=== PATIENT | female | born 1960 | race Caucasian/White ===

== ENCOUNTER → 2016-03-17 | Outpatient (CLI) | payer OTHER | LOC: MMPC 11:11 | DX: N18.3 Chronic kidney disease, stage 3 (moderate) (principal); I10 Essential (primary) hypertension; E78.5 Hyperlipidemia, unspecified; G35 Multiple sclerosis; E55.9 Vitamin D deficiency, unspecified; J44.9 Chronic obstructive pulmonary disease, unspecified; E66.9 Obesity, unspecified | CPT/HCPCS: 99213; G0463 ==

== ENCOUNTER → 2016-04-07 | Outpatient (CLI) | payer OTHER ==
[2016-04-07 11:28] LABS: BUN/CREATININE RATIO 17.85 (6-20); CALCIUM 9.5 mg/dL (8.7-10.7); CREATININE 1.4 mg/dL (0.50-1.20); POTASSIUM 4.3 meq/L (3.8-5.2)
--- NOTE | 2016-04-07 13:10 | DI ---
CT ANGIOGRAM OF THE CHEST, 04/07/2016 11:02 AM : Clinical History: Left pleuritic chest pain. Previous Exam: None at this facility. Scans are performed from the base of the neck to the lower lung bases following IV administration of 60 mL of Isovue 300, followed by a 50 mL bolus of normal saline. Proprietary automated bolus tracking software was used to verify the timing of the injection. The base of the neck and thoracic inlet are normal. A Groshong catheter is located in the left anteri or chest. There are no abnormal axillary, supraclavicular, mediastinal, or hilar nodes. The heart is normal and there are only small calcifications in the midportion of the LAD. There is a large pulmona ry embolus located in the distal portion of the left main pulmonary artery with occlusion of branches to the left upper lobe and lingular segment and branches to the anterobasal and laterobasal segments . Small clots are present in branches to the lateral segment of the right middle lobe. There are mult iple pleural-based densities in the anterior segment of the left upper lobe, the posterobasal segment of the left lower lobe, and the medial segment of the right middle lobe all consistent with small pu lmonary infarcts. There is a very small pleural effusion in the left posterior sulcus. There is no ri ght adrenal gland. The left adrenal gland has a normal configuration. Immediately anterior to the lef t adrenal gland and medial margin of the spleen is a 4 cm diameter low-density spherical lesion that contains gas within it as well as some calcific density in the posterior aspect. This lesion is darell guous with the posterior wall of the fundus of the stomach and may represent a diverticulum arising f rom the fundus. A true left adrenal mass is felt to be unlikely because of the presence of gas. [facility] evaluation of this lesion can either be performed with a followup air contrast upper GI series or with a noncontrast CT scan of the abdomen after the patient has ingested some gas granules. READIN. There are large clots in the left main pulmonary artery that extends into the branches to the lef t upper lobe and lingular segment and to the left lower lobe branches. Small pleural-based densities are present in the left upper lobe, left lower lobe, and right middle lobe consistent with small pulm onary infarcts. There is no pulmonary arterial hypertension. 2. There is a 4 cm low-density spherical lesion containing gas and calcium density material within i t located immediately posterior and contiguous with the body of the stomach. This may represent a div erticulum arising from the posterior margin of the fundus and body of the stomach. If further evaluat ion of this lesion is required, a double contrast upper GI series can be performed. 3. This patient apparently has only a single left adrenal gland.
[2016-04-08 13:40] LABS: SEND OUT PROTIME 11.9 sec
[2016-04-08 13:41] LABS: DRVVT SCREEN RATIO 1.0 ratio; SEND OUT APTT 27 sec; SEND OUT INR 1.1
[2016-04-08 13:42] LABS: FIBRIONGEN EQUIVALENT UNITS 1.47 mcg/mL FEU
[2016-04-08 13:43] LABS: SOLUBLE FIBRIN MONOMER <8 mcg/mL
[2016-04-11 14:02] LABS: APCRV RATIO 1.9
[2016-04-13 08:45] LABS: FACTOR V MUTATION ANALYSIS Heterozygous (Negative)
[2016-04-13 11:12] LABS: FACTOR V INTERPRETATION SEE COMMENTS (()); FACTOR V REVIEWED BY SEE COMMENTS (())
== END ==
LOC: CT 10:57
DX: R07.81 Pleurodynia (principal); I12.9 Hypertensive chronic kidney disease with stage 1 through stage 4 chronic kidney disease, or unspecified chronic kidney disease; N18.3 Chronic kidney disease, stage 3 (moderate); I26.99 Other pulmonary embolism without acute cor pulmonale; F17.210 Nicotine dependence, cigarettes, uncomplicated
CPT/HCPCS: 36415; 71275; 80048; 81240; 85300; 85303; 85306; 85307; 85366; 85379; 85384; 85390; 85610; 85613; 85670; 85730

== ENCOUNTER → 2016-04-27 | Outpatient (CLI) | payer OTHER ==
[2016-04-27 11:39] LABS: BUN/CREATININE RATIO 17.69 (6-20); CALCIUM 9.4 mg/dL (8.7-10.7); CHOL/HDL RATIO 4.69 RATIO (0-4.0); LDL CHOLESTEROL,CALCULATED 99.6 mg/dL
== END ==
LOC: MOB LAB 10:35
DX: N18.3 Chronic kidney disease, stage 3 (moderate) (principal); E55.9 Vitamin D deficiency, unspecified; E78.5 Hyperlipidemia, unspecified; F17.210 Nicotine dependence, cigarettes, uncomplicated
CPT/HCPCS: 80048; 82247; 82306; 82465; 82550; 82977; 83718; 84075; 84450; 84460; 84478

== ENCOUNTER → 2016-05-31 | Outpatient (CLI) | payer OTHER ==
[2016-05-31 10:45] LABS: BASOPHILS # (AUTO) 0.16 10*3/UL; BASOPHILS % (AUTO) 1.6 % (0-1); EOSINOPHILS # (AUTO) 0.26 10*3/UL; EOSINOPHILS % (AUTO) 2.6 % (0-8); HEMATOCRIT 42.3 % (37.0-47.0); HEMOGLOBIN 13.6 g/dL (12.0-16.0); LYMPHOCYTES # (AUTO) 4.35 10*3/uL; MEAN CORPUSCULAR HGB CONC 32.2 g/dL (33-37); MEAN CORPUSCULAR VOLUME 90.2 FL (81-99); MEAN PLATELET VOLUME 9.5 FL (7.4-12.2); MONOCYTES # (AUTO) 0.81 10*3/UL (0.3-0.8); MONOCYTES % (AUTO) 8.2 % (5-15); NEUTROPHILS # (AUTO) 4.27 10*3/UL; PLATELET MORPHOLOGY COMMENT NORMAL MORPHOLOGY (NORM); RBC MORPHOLOGY COMMENT NORMAL MORPHOLOGY (NORM); RED BLOOD COUNT 4.69 10^6/uL (4.20-5.40); WBC MORPHOLOGY COMMENT NORMAL MORPHOLOGY (NORM)
[2016-05-31 11:23] LABS: SERUM ALBUMIN 3.8 g/dL (3.5-4.8)
== END ==
LOC: LAB 10:27
PROVIDERS: ATTEND Specialist
DX: G35 Multiple sclerosis (principal)
CPT/HCPCS: 36415; 80076; 85025

== ENCOUNTER → 2016-06-08 | Outpatient (CLI) | payer OTHER | LOC: MMPC 11:11 | DX: I26.99 Other pulmonary embolism without acute cor pulmonale (principal); I10 Essential (primary) hypertension; E78.5 Hyperlipidemia, unspecified; G35 Multiple sclerosis; E55.9 Vitamin D deficiency, unspecified; J44.9 Chronic obstructive pulmonary disease, unspecified; E66.9 Obesity, unspecified | CPT/HCPCS: 99213; G0463 ==

== ENCOUNTER → 2016-09-02 | Outpatient (CLI) | payer OTHER ==
[2016-09-02 09:37] LABS: EOSINOPHILS % (AUTO) 1.7 % (0-8); HEMATOCRIT 44.7 % (37.0-47.0); HEMOGLOBIN 14.5 g/dL (12.0-16.0); MEAN CORPUSCULAR HEMOGLOBIN 28.1 PG (27-31); MEAN CORPUSCULAR HGB CONC 32.4 g/dL (33-37); MEAN CORPUSCULAR VOLUME 86.6 FL (81-99); MEAN PLATELET VOLUME 10.5 FL (7.4-12.2); MONOCYTES % (AUTO) 8.3 % (5-15); NEUTROPHILS % (AUTO) 56.1 % (50-80); RED BLOOD COUNT 5.16 10^6/uL (4.20-5.40)
[2016-09-02 09:38] LABS: BASOPHILS # (AUTO) 0.11 10*3/UL; LYMPHOCYTES # (AUTO) 3.75 10*3/uL; MONOCYTES # (AUTO) 0.95 10*3/UL (0.3-0.8); NEUTROPHILS # (AUTO) 6.45 10*3/UL; PLATELET MORPHOLOGY COMMENT NORMAL MORPHOLOGY (NORM); RBC MORPHOLOGY COMMENT NORMAL MORPHOLOGY (NORM); WBC MORPHOLOGY COMMENT NORMAL MORPHOLOGY (NORM)
[2016-09-02 09:58] LABS: SERUM ALBUMIN 3.9 g/dL (3.5-4.8)
== END ==
LOC: LAB 09:16
PROVIDERS: ATTEND Specialist
DX: G35 Multiple sclerosis (principal); Z79.899 Other long term (current) drug therapy
CPT/HCPCS: 36415; 80076; 82565; 84520; 85025